=== PATIENT | female | born 1990 | race Caucasian/White ===

== ENCOUNTER 2017-04-22 09:39 | Emergency (ER) | payer OTHER ==
[2017-04-22 09:45] VITALS: BP 130/78; PULSE 76; TEMP 98.7; BMI 30.2
--- NOTE | 2017-04-22 10:17 | PDOC ---
History of Present Illness - General Chief Complaint: Cold Symptoms Stated Complaint: COUGH Time Seen by Provider: 04/22/17 09:54 History Source: Patient Exam Limitations: No Limitations - History of Present Illness Initial Comments: 04/22/17 10:12 Patient here with complaints of runny nose, congestion, severe cough last night and low-grade fevers yesterday the day before. States all family has been ill with same, and has not improved with home remedies ration is 17 weeks with an uncomplicated r Timing/Duration: reports: intermittent Severity: reports: mild Associated Symptoms: reports: cough, facial pain, nasal congestion, nasal drainage. denies: fever/chills Past History - Travel Traveled outside of the country in the last 30 days: No Close contact w/someone who was outside of country & ill: No - Past Medical History Allergies/Adverse Reactions: Allergies Allergy/AdvReac Type Severity Reaction Status Date / Time No Known Allergies Allergy Verified 04/22/17 09:45 Home Medications: Ambulatory Orders NK [No Known Home Medication] 04/22/17 Asthma: No Cancer: No Cardiac Disorders: No Diabetes: No HTN: No Seizures: No Thyroid Disease: No - Reproductive History Cervical CA: No Dysfunctional Uterine Bleeding: No Ectopic : No Endometrial CA: No Polycystic Ovaries: No Therapeutic (s) & number: No Tubal Ligation: No - Immunization History Immunization Up to Date: Yes - Suicide/Smoking/Psychosocial Hx Smoking History: Never smoked Have you smoked in the past 12 months: Yes Number of Cigarettes Smoked Daily: 1 'Breaking Loose' booklet given: 11/03/13 Hx Alcohol Use: No Drug/Substance Use Hx: No Substance Use Type: None Hx Substance Use Treatment: No Review of Systems - Review of Systems Able to Perform ROS?: Yes Is the patient limited [place] proficient: Yes Constitutional: Yes: Symptoms Reported HEENTM: Yes: Symptoms Reported Integumentary: Yes: Symptoms Reported All Other Systems: Reviewed and Negative *Physical Exam - Vital Signs Last Vital Signs Temp Pulse Resp BP Pulse Ox 98.7 F 76 20 130/78 100 04/22/17 09:42 04/22/17 09:42 04/22/17 09:42 04/22/17 09:42 04/22/17 09:42 - Physical Exam General Appearance: Yes: Nourished, Appropriately Dressed, Apparent Distress, Mild Distress HEENT: positive: SIMONA, TMs Normal (congested but landmarks visualized), Pharynx Normal (no redness, swelling, exudate), Nasal Congestion, Rhinorrhea (clear drainage), Sinus Tenderness (mild fullness) Neck: positive: Supple. negative: Tender Respiratory/Chest: positive: Lungs Clear, Normal Breath Sounds (no wheezing or retractions) Gastrointestinal/Abdominal: positive: Soft Extremity: positive: Normal Capillary Refill, Normal Inspection Integumentary: positive: Dry, Warm, Pale Neurologic: positive: tobacco stripper II-XII NML intact, Fully Oriented, Alert, Normal Mood/ Affect, Normal Response, Motor Strength /5 Progress Note - Progress Note Progress Note: Upper respiratory infection, probable viral. No evidence of significant bacterial infection therefore will hold any other treatment/medications as patient is 17 weeks other than [id number] Tylenol/Benadryl and conservative measures *DC/Admit/Observation/Transfer Diagnosis at time of Disposition: URI, acute - Discharge Dispostion Disposition: HOME Condition at time of disposition: Stable Admit: No - Patient Instructions Printed Discharge Instructions: DI for Viral Upper Respiratory Infection -- Adult Additional Instructions: Rest, drink lots of fluids: Teas, water, soups, Pedialyte Saltwater gargles Steamy showers/seem to face break up mucus Avoid contact with others until fevers and cough resolved Lots of handwashing and good hygiene Tylenol for fever and pain Followup with private physician in one to 2 days as needed Return to emergency department for worsened symptoms, fevers, dehydration
== END 2017-04-22 10:20 | disposition home or self-care (01) ==
LOC: JERFT 09:39
DX: J06.9 Acute upper respiratory infection, unspecified (principal)
CPT/HCPCS: 99281-25

== ENCOUNTER 2017-09-19 18:05 | Inpatient (IN) | payer OTHER ==
[2017-09-19] MEDS ORDERED: ONDANSETRON 4 MG/2 ML VIAL IVPUSH PRN (19:11)
[2017-09-19] MEDS ORDERED: IBUPROFEN 600 MG TABLET (FP) PO PRN (19:11)
[2017-09-19] MEDS ORDERED: TUBERCULIN PPD 5 TU/0.1ML SYRINGE (IN PATIENT USE ONLY) ID ONE (19:15)
[2017-09-19] MEDS ORDERED: KETOROLAC TROMETHAMINE 30 MG/1 ML VIAL ONE (19:25)
[2017-09-19] MEDS ORDERED: ceFAZolin SODIUM 1 GM VIAL ONE (19:25)
[2017-09-19] MEDS ORDERED: SODIUM CHLORIDE 0.9% P/F 10 ML VIAL IJ ONE (19:25)
[2017-09-19] MEDS ORDERED: morphine SULFATE/Preservative Free 0.5 MG/ML (1cc Syringe) ONE (19:28)
[2017-09-19 19:32] VITALS: BMI 33.6
[2017-09-19] MEDS ORDERED: CITRIC ACID/SODIUM CITRATE 30 ML UNIT-DOSE CUP PO ONE (19:45)
[2017-09-19] MEDS ORDERED: ELECTROLYTE-148 SOLN 1,000 ML IV SCH ×2 (19:45→20:15)
[2017-09-19] MEDS ORDERED: ELECTROLYTE-148 SOLN 500 ML IV SCH (19:45)
--- NOTE | 2017-09-19 20:18 | HP ---
Past Medical History - Admission History of Present Illness: 26 yo @ 38 6/7 wks by first trimester ultrasound, EDC 09/27/2017 complicated by: 1. Previous CD, desires repeat 2. Desires BTL, medicaid consent signed 08/06/17 3. GBS positive - no PCN allergy Patient presents with chief complaint of contractions that started this afternoon, which increased in intensity and frequency. She reports movement, denies leakage of fluid or vaginal bleeding. History Source: Patient Limitations to Obtaining History: No Limitations - Past Medical History Cardiovascular: No: HTN Pulmonary: No: Asthma Gastrointestinal: No: GERD ...: 3 ...Para: 1 ...Term: 1 ...: 0 ...Spon : 0 ...Induced : 1 ...Multiple Gestation: 0 ...LMP: 12/15/16 ... Weeks Gestation by Dates: 39.5 ...EDC by Dates: 09/21/17 ...EDC by Sono: 09/27/17 Heme/Onc: No: Anemia - Past Surgical History Hx Myomectomy: No Hx Transabdominal Cerclage: No Additional Surgical History: eTOP, s/p D&C. CD - Smoking History Smoking history: Never smoked Have you smoked in the past 12 months: No Aproximately how many cigarettes per day: 1 - Alcohol/Substance Use Hx Alcohol Use: No - Social History History of Recent Travel: No Home Medications - Allergies Allergies/Adverse Reactions: Allergies Allergy/AdvReac Type Severity Reaction Status Date / Time No Known Allergies Allergy Verified 09/19/17 18:26 - Home Medications Home Medications: Ambulatory Orders Vitamins (Sjr) - 1 tab PO DAILY 09/19/17 Family Disease History - Family Disease History Family History: Denies Review of Systems - Review of Systems Constitutional: reports: No Symptoms Cardiovascular: reports: No Symptoms Respiratory: reports: No Symptoms Gastrointestinal: reports: No Symptoms Genitourinary: reports: No Symptoms Musculoskeletal: reports: No Symptoms Neurological: reports: No Symptoms Endocrine: reports: No Symptoms Psychiatric: reports: No Symptoms Physical Exam - Maternity Vital Signs: Vital Signs Temperature 98.3 F 09/19/17 19:23 Pulse Rate 92 H 09/19/17 19:23 Respiratory Rate 18 09/19/17 19:23 Blood Pressure 125/79 09/19/17 19:23 O2 Sat by Pulse Oximetry (%) Constitutional: Yes: Well Nourished, No Distress, Calm Cardiovascular: Yes: Regular Rate and Rhythm Lungs: Clear to auscultation - Abdominal Exam/OB Fundal Height: 40 Number of Fetuses: Single Presentation: Vertex Regularity: Regular Intensity: Mod/Strong Monitor Mode: External Category: I Accelerations: Non-Uniform Decelerations: None - Physical Exam Edema: LLE: Trace, RLE: Trace Psychiatric: Yes: Alert, Oriented - Labs Lab Results: PNL: O positive, antibody negative; RPR NR; HBS Ag negative; Rubella Immune; Parvovirus immune; HCV negative; Hg Corina AA; Varicella negative; GBS positive Hemorrhage Risk Assessment - Risk Factors Medium Risk Factors: Yes: Prior , uterine surgery,or multiple laparotomies High Risk Factors: Yes: None Risk Score: 1 Risk Level: Medium Risk Assessment/Plan 26 yo @ 38 6/7 wks active labor 1. Admit to L&D 2. Consents reviewed and signed. Reviewed risks including but not limited to infection, bleeding, damage to surrounding organs such as bowel, bladder, ureters, injury to . Reviewed risk of tubal ligation failure, risk of regret, risk of ectopic pregnacny 3. Routine labs reviewed 4. Category I FHT 5. Will proceed to OR
[2017-09-19] MEDS ORDERED: OXYTOCIN 10 UNITS/ML VIAL ONE (20:23)
[2017-09-19] MEDS ORDERED: ePHEDrine SULFATE 50 MG/1 ML AMPULE ONE (20:25)
[2017-09-19] MEDS ORDERED: OXYTOCIN 20 UNITS in 0.9% NS 20 UNIT/1,000 ML INFUS.BAG IV ONE (21:41)
[2017-09-19] MEDS: OXYTOCIN 20 UNITS in 0.9% NS 20 UNIT/1,000 ML INFUS.BAG IV SCH (21:45)
[2017-09-19] MEDS ORDERED: WITCH HAZEL 50% (TUCKS) 40 PAD/JAR PAD TP PRN (21:54)
[2017-09-19] MEDS ORDERED: METHYLERGONOVINE MALEATE 0.2 MG/1 ML AMP IM PRN (21:54)
[2017-09-19] MEDS ORDERED: SENNOSIDES/DOCUSATE COMBO (SENNA PLUS) TABLET (UD) PO PRN (21:54)
[2017-09-19] MEDS ORDERED: BENZOCAINE 28 GM HEMORRHOIDAL OINTMENT TP PRN (21:54)
[2017-09-19] MEDS ORDERED: oxyCODONE HCL 5 MG TABLET PO PRN (21:54)
[2017-09-19] MEDS ORDERED: IBUPROFEN 800 MG/8 ML IJ IVPB PRN (21:54)
[2017-09-19] MEDS ORDERED: BENZOCAINE 20% 57 GM BOTTLE TP PRN (21:54)
--- NOTE | 2017-09-19 22:03 | PN ---
Delivery - Delivery Section: Repeat EBL (cc): 600 Delivery, Single - Stages of Labor Date 1st Stage Initiatied: 09/19/17 Time 1st Stage Initiated: 17:30 Date of Delivery: 09/19/17 Placenta: Yes: Manual Removal - Condition of Infant Blackjack Supervisor/Terrazzo Tile Maker Present: Yes Infant Gender: Female Weight: 7 lb 7 oz Position: Left, OA - 1 Minute Total Score: 9 5 Minutes Total Score: 9 - [place] Feeding Plan Initial Plan: Elected not to breastfeed exclusively throughout hospitalization Remarks - Remarks Remarks: Surgery: Repeat CD + BTL Surgeon: Clayton Assist: Kaitlin Anesthesia: Guon, benedict Findings: Female infant, LOT position, 9,9; Wt 7-7; length 19.5 inches; normal tubes and ovaries bilaterally Dictation: [id number]
[2017-09-20] MEDS: OXYTOCIN 20 UNITS in 0.9% NS 20 UNIT/1,000 ML INFUS.BAG IV SCH (04:48)
--- NOTE | 2017-09-20 07:38 | PN ---
Post Progress Note - Subjective Subjective: Patient without acute complaints. Currently NPO No voiding, haynes in place draining clear fluid No ambulation or flatus yet. Denies fevers or chills. Pain well controlled. Post Day: 1 Type of Delivery: Repeat C/S Vital Signs: Vital Signs Temperature 98 F 09/20/17 05:56 Pulse Rate 98 H 09/20/17 05:56 Respiratory Rate 18 09/20/17 06:09 Blood Pressure 105/65 09/20/17 05:56 O2 Sat by Pulse Oximetry (%) 100 09/19/17 23:00 Breast Exam: Yes: Soft Uterus: Yes: Fundus Firm, Fundus @ umbilicus Incision: Yes: Dressing dry and intact Abdomen/GI: Yes: Abdomen soft, Passing flatus, Tolerating PO. No: Tender Lochia: Yes: Serosa Lochia, amount: Small Extremities: Yes: Calves non-tender, Edema (trace) Activity: Ambulating Assessment/Plan 26 yo POD # 1 s/p repeat CD + BTL, afebrile, vital signs stable, doing well 1. Continue routine postoperative care. 2. Follow up AM CBC 3. Rh positive status, no rhogam indicated. 4. Encourage ambulation and incentive spirometer use 5. Continue oral pain medication 6. Anticipate discharge home postoperative day #3 or #4
[2017-09-20 08:13] LABS: BASO % 0.4 % (0-2.0); EOS % 0.7 % (0-4.5); HEMATOCRIT 30.1 % (32.4-45.2); HEMOGLOBIN 9.6 GM/dL (10.7-15.3); LYMPH % 13.2 % (8-40); MCH 22.1 pg (25.7-33.7); MCHC 31.8 g/dl (32.0-36.0); MEAN CELL VOLUME 69.4 fl (80-96); MEAN PLT VOLUME 7.3 fl (7.5-11.1); MONO % 5.8 % (3.8-10.2); NEUT % 79.9 % (42.8-82.8); PLATELET COUNT 255 K/MM3 (134-434); RBC 4.34 M/mm3 (3.60-5.2); RDW 17.8 % (11.6-15.6); WHITE BLOOD COUNT 12.3 K/mm3 (4.0-10.0)
[2017-09-20] MEDS: ACETAMINOPHEN 325 MG TABLET (FP) PO PRN ×4 (09:29→22:16)
[2017-09-20] MEDS: SIMETHICONE 80 MG TAB.CHEW (FP) PO PRN ×4 (09:31→22:16)
[2017-09-20] MEDS: PRENATAL VITAMINS W/ FOLIC ACID TABLET (FP) PO SCH (09:36)
[2017-09-20] MEDS: oxyCODONE HCL 5 MG TABLET PO PRN ×3 (14:33→22:15)
--- NOTE | 2017-09-20 16:24 | OP ---
DATE OF OPERATION: 09/19/2017 ATTENDING PHYSICIAN: Sindy Arnold MD PREOPERATIVE DIAGNOSES: Intrauterine , 36 weeks; prior section, for repeat; desiring permanent sterilization. POSTOPERATIVE DIAGNOSES: Intrauterine , 36 weeks; prior section, for repeat; desiring permanent sterilization. SURGEON: Sindy Arnold MD INFRASTRUCTURE MANAGER: Rafat Madrigal MD ANESTHESIOLOGIST: Reji Pantoja MD ANESTHESIA: Spinal. FINDINGS: Female , LOT position, Apgars 9 and 9, weight 7 pounds 7 ounces , length 19.5 inches, normal tubes and ovaries bilaterally. INDICATION: The patient is a 26-year-old, 3, para 1, with a history of prior delivery, desired repeat and permanent sterilization. She was counseled regarding risks, benefits, alternatives and complications of procedure including infection, bleeding, damage to surrounding organs such as the bowel, bladder, ureters, injury to , tubal ligation failure, risk of ectopic , risk of regret. She expressed understanding and was brought to the operating room. PROCEDURE: When anesthesia was found to be adequate, the patient was prepped and draped in normal sterile fashion, placed in dorsal supine position, leftward tilt. An approximately 11 cm skin incision was made with a knife and carried down to the underlying rectus fascia using the Bovie electrocautery. The fascia was nicked in midline, extended laterally using electrocautery. The inferior portion of the fascial incision was tented up using Joel clamps, dissected off the underlying rectus muscle using the [place] scissors. Attention was brought to the superior portion where, in similar fashion, it was tented up using Joel clamps and dissected off the underlying rectus muscles using the [place]oyola scissors. The rectus muscles were in midline and the peritoneum was entered sharply. The peritoneal incision was extended superiorly and inferiorly using the Metzenbaum scissors. The vesicouterine peritoneum was identified, entered sharply, and the bladder flap was created digitally. Hysterotomy was performed, clear fluid was noted. Hysterotomy was extended using the bandage scissors. The 's head was brought to the hysterotomy site and the head was delivered, followed by shoulders and body without difficulty. Cord was clamped and cut. Cord blood was collected and sent. The infant was handed to awaiting NICU staff. The placenta was manually extracted. The uterus was cleared of all clot and debris. The uterus was closed using 0 Biosyn in running fashion with a second layer as an imbricating layer. Attention was brought to the left fallopian tube, which was followed to the fimbriated end. An approximately 2-cm portion was suture ligated using plain gut and the ends were cauterized and found to be hemostatic. Attention was brought to the right fallopian tube, which was followed to fimbriated end. A 2-cm portion was suture ligated using 0 plain gut. Good hemostasis was noted. Copious irrigation was performed. All pedicles were examined and found to be hemostatic. The peritoneum was closed using 2-0 Biosyn in a running fashion. The muscles were reapproximated using 0 Biosyn in an interrupted fashion. The fascia was closed using 0 Vicryl in a running fashion. The subcutaneous fat was closed using 0 Vicryl in a running fashion. The skin was reapproximated using 3-0 Vicryl. The patient tolerated procedure well. Estimated blood loss was 600 mL. Patient was brought to recovery room in stable condition. Madhuri [id number] MTDD
[2017-09-20] MEDS ORDERED: BISACODYL 10 MG SUPP.RECT RC PRN (21:54)
[2017-09-21] MEDS: SIMETHICONE 80 MG TAB.CHEW (FP) PO PRN ×4 (03:09→19:37)
[2017-09-21] MEDS: ACETAMINOPHEN 325 MG TABLET (FP) PO PRN ×4 (03:10→19:35)
[2017-09-21] MEDS: oxyCODONE HCL 5 MG TABLET PO PRN ×4 (03:10→19:35)
--- NOTE | 2017-09-21 07:07 | PN ---
Progress Note, Physician Chief Complaint: s/p c section under spinal anesthesia History of Present Illness: post op day one, duramorph for post op pain control - Current Medication List Current Medications: Active Medications Acetaminophen (Tylenol -) 650 mg PO Q4H PRN PRN Reason: PAIN LEVEL 1-5 Last Admin: 09/21/17 03:10 Dose: 650 mg Benzocaine (Americaine 20% [place] -) 1 spray TP PRN PRN PRN Reason: Pain - Topical Benzocaine (Americaine Ointment -) 1 applic TP PRN PRN PRN Reason: Pain - Topical Bisacodyl (Dulcolax Suppository -) 10 mg RC PRN PRN PRN Reason: CONSTIPATION Diphenhydramine HCl (Benadryl Injection -) 25 mg IVPUSH Q4H PRN PRN Reason: Pruritis Parenteral Electrolytes (Plasma-Lyte 148 -) 1,000 mls @ 125 mls/hr IV [facility] Last Admin: 09/19/17 19:50 Dose: 125 mls/hr Oxytocin/Sodium Chloride (Normal Saline+20 Units Oxytocin -) 20 unit in 1,000 mls @ 125 mls/hr IV ASDIR [facility] Last Admin: 09/20/17 04:48 Dose: 125 mls/hr Ibuprofen (Motrin -) 600 mg PO Q4H PRN PRN Reason: PAIN LEVEL 6-10 Ibuprofen (Caldolor Injection -) 800 mg IVPB Q8H PRN PRN Reason: PAIN LEVEL 1-5 Last Admin: 09/20/17 05:57 Dose: 800 mg Methylergonovine Maleate (Methergine Injection -) 0.2 mg IM Q4H PRN PRN Reason: Excessive Bleeding (L&D) Ondansetron HCl (Zofran Injection) 4 mg IVPUSH Q4H PRN PRN Reason: NAUSEA Oxycodone HCl (Roxicodone -) 5 mg PO Q4H PRN PRN Reason: PAIN LEVEL 4 - 6 Last Admin: 09/21/17 03:10 Dose: 5 mg Oxycodone HCl (Roxicodone -) 10 mg PO Q4H PRN PRN Reason: PAIN LEVEL 7 - 10 Last Admin: 09/20/17 09:30 Dose: 10 mg Multivit/Folic Acid/Iron ( Vitamins (Sjr) -) 1 tab PO DAILY DAYNE Last Admin: 09/20/17 09:36 Dose: Not Given Senna/Docusate Sodium (Pericolace -) 2 tablet PO HS PRN PRN Reason: CONSTIPATION Simethicone (Mylicon -) 80 mg PO Q4H PRN PRN Reason: GAS Last Admin: 09/21/17 03:09 Dose: 80 mg Witch Concetta/Glycerin (Tucks Pads -) 1 pad TP PRN PRN PRN Reason: Pain - Topical - Objective Vital Signs: Vital Signs Temperature 97.9 F 09/20/17 20:53 Pulse Rate 87 09/20/17 20:53 Respiratory Rate 20 09/20/17 22:00 Blood Pressure 104/70 09/20/17 20:53 O2 Sat by Pulse Oximetry (%) 100 09/19/17 23:00 Constitutional: Yes: Well Nourished Cardiovascular: Yes: WNL Respiratory: Yes: WNL Gastrointestinal: Yes: WNL Labs: CBC, BMP 09/20/17 06:35 Assessment/Plan patient doing well, no adverse reaction to anesthetic. No nausea or vomiting. No headache. Dept of anesthesia will sign off care at this time
--- NOTE | 2017-09-21 09:44 | PN ---
Post Progress Note - Subjective Subjective: Patient without acute complaints. Reports tolerating oral intake without nausea or vomiting. Ambulating without dizziness. Denies fevers or chills. Pain well controlled with oral pain medication. without difficulty. Passing flatus x 1. Post Day: 2 Type of Delivery: Repeat C/S Vital Signs: Vital Signs Temperature 97.9 F 09/20/17 20:53 Pulse Rate 87 09/20/17 20:53 Respiratory Rate 20 09/20/17 22:00 Blood Pressure 104/70 09/20/17 20:53 O2 Sat by Pulse Oximetry (%) 100 09/19/17 23:00 Breast Exam: Yes: Soft Uterus: Yes: Fundus Firm, Fundus below umbilicus Incision: Yes: Sutures intact. No: Redness, Oozing Abdomen/GI: Yes: Abdomen soft, Abdominal Distention, Tender (mild incisional ), Passing flatus (x 1), Tolerating PO Lochia: Yes: Serosa Lochia, amount: Small Extremities: Yes: Calves non-tender, Edema (trace) Activity: Ambulating - Labs Labs: CBC WBC 12.3 K/mm3 (4.0-10.0) H 09/20/17 06:35 RBC 4.34 M/mm3 (3.60-5.2) 09/20/17 06:35 Hgb 9.6 GM/dL (10.7-15.3) L D 09/20/17 06:35 Hct 30.1 % (32.4-45.2) L 09/20/17 06:35 MCV 69.4 fl (80-96) L 09/20/17 06:35 MCH 22.1 pg (25.7-33.7) L 09/20/17 06:35 MCHC 31.8 g/dl (32.0-36.0) L 09/20/17 06:35 RDW 17.8 % (11.6-15.6) H 09/20/17 06:35 Plt Count 255 K/MM3 (134-434) 09/20/17 06:35 MPV 7.3 fl (7.5-11.1) L 09/20/17 06:35 Neutrophils % 79.9 % (42.8-82.8) 09/20/17 06:35 Lymphocytes % 13.2 % (8-40) D 09/20/17 06:35 Monocytes % 5.8 % (3.8-10.2) 09/20/17 06:35 Eosinophils % 0.7 % (0-4.5) 09/20/17 06:35 Basophils % 0.4 % (0-2.0) 09/20/17 06:35 Assessment/Plan 26 yo POD # 2 s/p repeat CD + BTL, afebrile, vital signs stable, doing well 1. Continue routine postoperative care. 2. Encourage ambulation and incentive spirometer use 3. Continue oral pain medication 4. Anticipate discharge home postoperative day #3 or #4
[2017-09-21] MEDS: PRENATAL VITAMINS W/ FOLIC ACID TABLET (FP) PO SCH (10:00)
[2017-09-22] MEDS: ACETAMINOPHEN 325 MG TABLET (FP) PO PRN ×2 (00:34→09:53)
[2017-09-22] MEDS: oxyCODONE HCL 5 MG TABLET PO PRN (00:34)
[2017-09-22] MEDS: SIMETHICONE 80 MG TAB.CHEW (FP) PO PRN ×2 (00:35→09:54)
[2017-09-22 07:45] LABS: BASO % 0.6 % (0-2.0); EOS % 2.6 % (0-4.5); HEMATOCRIT 30.3 % (32.4-45.2); HEMOGLOBIN 9.8 GM/dL (10.7-15.3); MCH 22.3 pg (25.7-33.7); MCHC 32.3 g/dl (32.0-36.0); MEAN PLT VOLUME 7.5 fl (7.5-11.1); MONO % 5.7 % (3.8-10.2); NEUT % 63.1 % (42.8-82.8); PLATELET COUNT 308 K/MM3 (134-434); RBC 4.39 M/mm3 (3.60-5.2); RDW 18.2 % (11.6-15.6); WHITE BLOOD COUNT 10.2 K/mm3 (4.0-10.0)
--- NOTE | 2017-09-22 08:46 | PN ---
Post Progress Note - Subjective Subjective: No complaints Post Day: 3 Type of Delivery: Repeat C/S Vital Signs: Vital Signs Temperature 98.3 F 09/21/17 21:00 Pulse Rate 73 09/21/17 21:00 Respiratory Rate 20 09/21/17 21:00 Blood Pressure 106/65 09/21/17 21:00 O2 Sat by Pulse Oximetry (%) 100 09/19/17 23:00 Breast Exam: Yes: Soft Uterus: Yes: Fundus Firm, Fundus below umbilicus, Non-tender Incision: Yes: Sutures intact Abdomen/GI: Yes: Abdomen soft, Passing flatus Lochia: Yes: Rubra Lochia, amount: Small Extremities: Yes: Calves non-tender, Edema (trace) Perineum: Yes: Intact Activity: Ambulating - Labs Labs: CBC WBC 10.2 K/mm3 (4.0-10.0) H 09/22/17 06:00 RBC 4.39 M/mm3 (3.60-5.2) 09/22/17 06:00 Hgb 9.8 GM/dL (10.7-15.3) L 09/22/17 06:00 Hct 30.3 % (32.4-45.2) L 09/22/17 06:00 MCV 69.0 fl (80-96) L 09/22/17 06:00 MCH 22.3 pg (25.7-33.7) L 09/22/17 06:00 MCHC 32.3 g/dl (32.0-36.0) 09/22/17 06:00 RDW 18.2 % (11.6-15.6) H 09/22/17 06:00 Plt Count 308 K/MM3 (134-434) D 09/22/17 06:00 MPV 7.5 fl (7.5-11.1) 09/22/17 06:00 Neutrophils % 63.1 % (42.8-82.8) D 09/22/17 06:00 Lymphocytes % 28.0 % (8-40) D 09/22/17 06:00 Monocytes % 5.7 % (3.8-10.2) 09/22/17 06:00 Eosinophils % 2.6 % (0-4.5) D 09/22/17 06:00 Basophils % 0.6 % (0-2.0) 09/22/17 06:00 Assessment/Plan 26yo female s/p repeat LT C/S, doing well stable, afebrile. Asymptomatic for anemia care instructions reviewed. Continue routine postop care. Ambulation encouraged.
--- NOTE | 2017-09-22 09:04 | DS ---
Physical Exam-PRECISION INSPECTOR Vital Signs: Vital Signs Temperature 98.3 F 09/21/17 21:00 Pulse Rate 73 09/21/17 21:00 Respiratory Rate 20 09/21/17 21:00 Blood Pressure 106/65 09/21/17 21:00 O2 Sat by Pulse Oximetry (%) 100 09/19/17 23:00 Constitutional: Yes: Well Nourished, No Distress, Calm Eyes: Yes: WNL, Conjunctiva Clear HENT: Yes: WNL, Atraumatic, Normocephalic Neck: Yes: WNL, Supple, Trachea Midline Cardiovascular: Yes: WNL, Regular Rate and Rhythm Respiratory: Yes: WNL, Regular, CTA Bilaterally Gastrointestinal: Yes: Normal Bowel Sounds, Soft ...Rectal Exam: Yes: Deferred Renal/: Yes: WNL ....Post : Yes: Uterus firm, Uterus non-tender, Slight lochia rubra Breast(s): Yes: WNL Musculoskeletal: Yes: WNL Extremities: Yes: WNL Edema: Yes Edema: LLE: Trace, RLE: Trace Integumentary: Yes: WNL Wound/Incision: Yes: Clean/Dry, Well Approximated, Sutures Intact, Steri Strips , Open to air Neurological: Yes: WNL, Alert, Oriented ...Motor Strength: WNL Psychiatric: Yes: WNL, Alert, Oriented Labs: CBC, BMP 09/22/17 06:00 Delivery - Delivery Section: Repeat Type of Anesthesia: Spinal Episiotomy/Laceration: None EBL (cc): 600 Delivery, Single - Stages of Labor Date 1st Stage Initiatied: 09/19/17 Time 1st Stage Initiated: 17:30 Date of Delivery: 09/19/17 Time of Delivery: 20:42 Time Placenta Delivered: 20:43 Placenta: Yes: Manual Removal - Condition of Fruit Or Nut Picker/Fuel Cell Systems Engineer Present: Yes Name: [place] Hand Infant Gender: Female Weight: 3.374 kg Position: Left, OA Total Hours ROM (Hrs/Mins): 1 minute - 1 Minute Total Score: 9 5 Minutes Total Score: 9 - Feeding Plan Initial Plan: Elected not to breastfeed exclusively throughout hospitalization Discharge Summary Reason For Visit: C SECTION Labor at term Procedures: Principal: Repeat LT C/S Other Procedures: Sterilzation (BTL) Hospital Course: Normal recovery Condition: Good - Instructions Diet, Activity, Other Instructions: Physical activity Resume your normal everyday activity as tolerated no heavy lifting or exercise until seen by your surgeon. You may walk unlimited sathya of and climb stairs. You may resume driving the car when you feel safe and comfortable behind the wheel. No sexual activity as instructed. Wound care If you have a bandage, leave it on, and keep dry for 48-72 hours. After that time discard the outer bandage. If they are tapes on the skin under the out of bandage leave them in place. They will peel off in the next 7 to 10 days. Do Not Peel them off. You may shower the day after surgery. If there are tapes present on the skin, you may shower over them. Diet There are no dietary restrictions. Eat healthy, high-fiber foods. Drink 6 to 8 glasses of liquid each day. This will assist in keeping your bowels are regular. Pain management You may take Tylenol or acetaminophen or Ibuprofen (for example, Motrin, Advil etc.) from my pain prescription medication is ordered should be taken as prescribed for moderate to severe pain. Call MD for any of the following: Severe pain not relieved by medication Fever of 101 or higher Excessive bleeding or drainage on dressing Inability to urinate Disposition: HOME - Home Medications Comprehensive Discharge Medication List: Ambulatory Orders Vitamins (Sjr) - 1 tab PO DAILY 09/19/17
[2017-09-22 09:25] VITALS: BP 127/68; PULSE 69; TEMP 98.2
[2017-09-22] MEDS: PRENATAL VITAMINS W/ FOLIC ACID TABLET (FP) PO SCH (09:52)
[2017-09-22] MEDS ORDERED: PATIENT'S OWN MEDICATION (NON-FORMULARY) (Prenatal Vitamins (Sjr) - [Prenatal Vitamins (Sj PO SCH (10:00)
--- NOTE | 2017-09-23 12:23 | PATH ---
Surgical Pathology Report Patient Name: DAE BROOKS [facility]. Rec. #: [id number] /Age/Gender: 1990 (Age: 26) / F Account: [id number] Location: [facility] OBS/BACTERIOLOGIST DAIRY Taken: 09/20/2017 Received: 09/21/2017 Reported: 09/23/2017 Physicians: Sindy Arnold Specimen(s) Received A: PLACENTA B: LEFT FALLOPIAN TUBE C: RIGHT FALLOPIAN TUBE Clinical History term for repeat Previous x1 Final Diagnosis A. PLACENTA, SECTION: 440 g THIRD TRIMESTER PLACENTA WITH TRIVASCULAR UMBILICAL CORD AND MILD TO MODERATE ACUTE CHORIOAMNIONITIS. B. FALLOPIAN TUBE, LEFT, PARTIAL EXCISION: FULL LUMINAL PORTION OF UNREMARKABLE FALLOPIAN TUBE. C. FALLOPIAN TUBE, RIGHT, PARTIAL EXCISION: FULL LUMINAL PORTION OF UNREMARKABLE FALLOPIAN TUBE. Electronically Signed Katelynn Daniels M.D. Gross Description A. The specimen is received fresh labeled placenta and is a 440 gram, 18.5 x 15.0 x 2.0 cm. placenta with attached membranes and umbilical cord. The attached membranes are mcneill, thick, cloudy and insert marginally. The umbilical cord measures 30 cm. in length and averages 1 cm. in diameter. The cord inserts eccentrically, 5 cm. to the nearest margin. No true knots or strictures are identified. Cut surface of the umbilical cord reveals 3 vessels. The surface is york blue with moderate fibrin deposition and appropriate caliber vessels. The maternal surface is red-brown with focal defects. Sectioning reveals red-brown, spongy parenchyma. No lesions are identified. [employer] sections are submitted in three cassettes as follows: 1- membrane rolls and umbilical cord; 2-3- full thickness sections of placenta. B. Received in formalin labeled "left tube," is a 1.1 cm in length portion of fallopian tube. No fimbria are present. The outer surface is mcneill-santoyo and smooth. Sectioning reveals an unremarkable lumen. [employer] sections are submitted in one cassette. C. Received in formalin labeled "right tube," is a 1.2 cm in length portion of fallopian tube. No fimbria are present. The outer surface is mcneill-santoyo and smooth. Sectioning reveals an unremarkable lumen. [employer] sections are submitted in one cassette. 09/22/2017 saudi09/22/2017
== END 2017-09-22 11:00 | disposition home or self-care (01) | DRG 540 ==
LOC: JDEL 18:05 → JLDR 18:40 → J3W 23:20
PROVIDERS: ADMIT Obstetrics & Gynecology; ATTEND Obstetrics & Gynecology
PROC: 10D00Z1 Extraction of Products of Conception, Low, Open Approach (ICD-10-PCS; principal; 2017-09-19)
PROC: 0UB70ZZ Excision of Bilateral Fallopian Tubes, Open Approach (ICD-10-PCS; 2017-09-19)
DX: O34.211 Maternal care for low transverse scar from previous cesarean delivery (principal); O60.14X0 Preterm labor third trimester with preterm delivery third trimester, not applicable or unspecified; O99.824 Streptococcus B carrier state complicating childbirth; O36.0930 Maternal care for other rhesus isoimmunization, third trimester, not applicable or unspecified; O99.02 Anemia complicating childbirth; D64.9 Anemia, unspecified; Z3A.38 38 weeks gestation of pregnancy; Z37.0 Single live birth; Z3A.36 36 weeks gestation of pregnancy; Z30.2 Encounter for sterilization
CPT/HCPCS: 36415; 85025; 88302-TC; 88307-TC; 94010